=== PATIENT | female | born 1965 | race Caucasian/White ===

== ENCOUNTER 2019-05-03 13:35 | Emergency (ER) | payer BC, OTHER ==
[2019-05-03 13:56] VITALS: BP 156/95
[2019-05-03] MEDS ORDERED: DOXYcycline CAP(*) 100 MG PO ONE (14:05)
--- NOTE | 2019-05-03 14:17 | UC ---
Skin Complaint HPI - HPI Summary HPI Summary: Patient is a 53yo female presenting with a tick bite to the upper back that her noticed and removed a couple hours ago. Patient believes she was bitten yesterday while on a walk with her dogs. Patient denies fever, chill, n/v/d. Denies pain and drainage at the site. Patient admits to be anxious and upset d/ t concern for Lyme disease. States she "overthinks things about her health since having uterine cancer." - History of Current Complaint Chief Complaint: UCSkin Stated Complaint: TICK BITE Hx Obtained From: Patient Onset/Duration: Sudden Onset Skin Exposure Onset/Duration: Days Ago Current Severity: Mild Pain Intensity: 1 Pain Scale Used: 0-10 Numeric - Allergy/Home Medications Allergies/Adverse Reactions: Allergies Allergy/AdvReac Type Severity Reaction Status Date / Time Sulfa (Sulfonamide Allergy Vomiting Verified 05/03/19 13:50 Antibiotics) tape Allergy Blisters Uncoded 05/03/19 13:51 Home Medications: Home Medications NK [No Home Medications Reported] 05/03/19 [History Confirmed 05/03/19] PMH/Surg Hx/FS Hx/Imm Hx - Surgical History Surgical History: Yes Surgery Procedure, Year, and Place: uterine ca - Social History Alcohol Use: None Substance Use Type: None Smoking Status (MU): Never Smoked Tobacco Review of Systems All Other Systems Reviewed And Are Negative: No Constitutional: Positive: Negative. Negative: Fever, Chills Skin: Positive: Other - tick bite on back Eyes: Positive: Negative Respiratory: Positive: Negative Cardiovascular: Positive: Negative Motor: Positive: Negative Neurological: Positive: Negative Psychological: Positive: Anxious Physical Exam Triage Information Reviewed: Yes Appearance: Well-Appearing, No Pain Distress, Well-Nourished Vital Signs: Initial Vital Signs Temp 98.3 F 05/03/19 13:46 Pulse 100 05/03/19 13:46 Resp 20 05/03/19 13:46 BP 156/95 05/03/19 13:46 Pulse Ox 100 05/03/19 13:46 Vital Signs Reviewed: Yes Eyes: Positive: Conjunctiva Clear ENT: Positive: Hearing grossly normal Neck: Positive: Supple Respiratory: Positive: No respiratory distress Neurological: Positive: Alert Psychological: Positive: Consolable, Other: - Patient was anxious about Lyme and began to tear up during visit Skin: Positive: Other - area of erythema on right upper back where tick was removed. no drainage noted Course/Dx - Course Course Of Treatment: Educated patient on Lyme disease and its symptoms to watch for over the next several weeks. Educated her on the prophylactic treatment. Patient received 200mg of doxy here to take home and take with lunch. Patient voiced understanding and agreed to the treatment plan. - Diagnoses Provider Diagnosis: Tick bite of back Discharge ED - Sign-Out/Discharge Documenting (check all that apply): Patient Departure All imaging exams completed and their final reports reviewed: No Studies - Discharge Plan Condition: Stable Disposition: HOME Patient Education Materials: Tick Bite (ED) Referrals: Yodit Edward MD [Primary Care Provider] - If Needed Additional Instructions: As discussed, you received a one-time dose of Doxycycline to prevent Lyme disease. No further treatment is required. Return or follow up with your PCP if you experience a rash or drainage at the site of the tick bite, fever, chills, nausea, vomiting, joint pain, or muscle pain within the next month or so. - Billing Disposition and Condition Condition: STABLE Disposition: Home
== END 2019-05-03 14:20 | disposition home or self-care (01) ==
LOC: UCEAST 13:35
DX: S20.461A Insect bite (nonvenomous) of right back wall of thorax, initial encounter (principal); Z88.2 Allergy status to sulfonamides; Z91.09 Other allergy status, other than to drugs and biological substances; W57.XXXA Bitten or stung by nonvenomous insect and other nonvenomous arthropods, initial encounter; Y92.9 Unspecified place or not applicable
CPT/HCPCS: 99202; A9270-GY; G0463